=== PATIENT | female | born 2005 | race Caucasian/White ===

== ENCOUNTER 2025-01-16 13:58 | Outpatient (REF) | payer SELFPAY ==
[2025-01-19 11:55] LABS: Chlamydia Result Negative (Negative); GC Result Negative (Negative)
== END 2025-01-16 13:59 | disposition home or self-care (01) ==
LOC: LBN 13:58
PROVIDERS: Visit Provider Physician Assistant Medical
DX: N89.8 Other specified noninflammatory disorders of vagina (principal)
CPT/HCPCS: 87491; 87591; 87480; 87510; 87660